=== PATIENT | male | born 1985 | race African-American/Black ===

== ENCOUNTER 2017-04-19 15:22 | Emergency (ER) | payer MEDICAID ==
[~2017-04-19] VITALS: Ht 193 cm; Wt 92.1 kg
[2017-04-19 15:51] VITALS: BP 149/95
--- NOTE | 2017-04-19 18:33 | NUR ---
PT TO BED 8 AT THIS TIME.
--- NOTE | 2017-04-19 18:53 | NUR ---
31M BIB SELF C/O 04/30 "SHARP" RIGHT ELBOW PAIN X 3 WKS; PT DENIES RECENT INJURY, MILD SWELLING, NO REDNESS NOTED, NOT HOT TO TOUCH; CMS INTACT; SKIN IS PINK/WARM/DRY; AOX4 WITH EVEN AND STEADY GAIT; RR ARE EVEN AND UNLABORED; VSS; PATIENT POSITIONED FOR COMFORT; HOB ELEVATED; BED DOWN. ER MD MADE AWARE OF PT STATUS. ALL NEEDS MET AT THIS TIME.
--- NOTE | 2017-04-19 19:09 | NUR ---
Pt report given to Torri ROSENBERG. Transfer of care at this time.
--- NOTE | 2017-04-19 19:15 | NUR ---
Assumed care of pt. No change in condition. pain 05/31.
--- NOTE | 2017-04-19 20:30 | NUR ---
Patient being evaluated by Dr. Dial at bedside.
[2017-04-19] MEDS ORDERED: MORPHINE SULFATE 4 MG/ML SYR IM ONE (20:35)
[2017-04-19 21:15] VITALS: BP 132/87
--- NOTE | 2017-04-19 21:15 | NUR ---
Patient discharged with v/s stable. Written and verbal after care instructions given and explained. Patient alert, oriented and verbalized understanding of instructions. Ambulatory with steady gait. All questions addressed prior to discharge. ID band removed. Patient advised to follow up with PMD. Patient educated on indication of medication including possible reaction and side effects. Opportunity to ask questions provided and answered.
== END 2017-04-19 21:15 | disposition home or self-care (01) ==
LOC: MED 15:22
DX: M25.521 Pain in right elbow (principal); G89.29 Other chronic pain; R03.0 Elevated blood-pressure reading, without diagnosis of hypertension
CPT/HCPCS: 73080; 96372; 99284; J2270

== ENCOUNTER 2017-05-29 09:19 | Emergency (ER) | payer SELFPAY ==
[~2017-05-29] VITALS: Ht 188 cm; Wt 89.8 kg
[2017-05-29 09:26] VITALS: BP 126/77
--- NOTE | 2017-05-29 09:30 | NUR ---
Patient ambulated to bed 06.
--- NOTE | 2017-05-29 09:32 | NUR ---
33/M BIB MOM C/O RIGHT ARM/ELBOW PAIN X1 WEEK. HX ELBOW SURGERY. DENIES N/V/D; SKIN IS PINK/WARM/DRY; AAOX4 WITH EVEN AND STEADY GAIT; LUNGS CLEAR BL; PT DENIES ANY FEVER, CP, SOB, OR COUGH AT THIS TIME; PATIENT STATES PAIN OF 10/10 AT THIS TIME; PATIENT POSITIONED FOR COMFORT; HOB ELEVATED; BEDRAILS UP X2; BED DOWN. ER MD MADE AWARE OF PT STATUS.
--- NOTE | 2017-05-29 10:00 | NUR ---
Dr. Bergeron evaluating patient at bedside.
[2017-05-29 10:32] VITALS: BP 119/72
--- NOTE | 2017-05-29 10:32 | NUR ---
Patient discharged with v/s stable. Written and verbal after care instructions given and explained. Patient alert, oriented and verbalized understanding of instructions. Ambulatory with steady gait. All questions addressed prior to discharge. ID band removed. Patient advised to follow up with PMD. Rx of EC- NAPROSYN & DOXYCYCLINE given. Patient educated on indication of medication including possible reaction and side effects. Opportunity to ask questions provided and answered.
== END 2017-05-29 10:32 | disposition home or self-care (01) ==
LOC: MED 09:19
DX: G89.4 Chronic pain syndrome (principal); M25.521 Pain in right elbow
CPT/HCPCS: 99283

== ENCOUNTER 2017-11-16 09:29 | Emergency (ER) | payer MEDICAID ==
[~2017-11-16] VITALS: Ht 188 cm; Wt 90.9 kg
[2017-11-16 09:33] VITALS: BP 145/98
--- NOTE | 2017-11-16 09:39 | NUR ---
Patient ambulated to chair B. RN evaluating patient.
--- NOTE | 2017-11-16 09:42 | NUR ---
32Y/M BIB SELF C/O BODYACHES ON RIGHT SIDE FROM A WEEK AGO. PATIENT STATES PAIN OF 10/10 AT THIS TIME; VSS; PATIENT POSITIONED FOR COMFORT; ER MD MADE AWARE OF PT STATUS.
--- NOTE | 2017-11-16 09:48 | NUR ---
Dr. Lee evaluating patient.
--- NOTE | 2017-11-16 10:02 | NUR ---
Patient discharged with v/s stable. Written and verbal after care instructions given and explained. Patient alert, oriented and verbalized understanding of instructions. Ambulatory with steady gait. All questions addressed prior to discharge. ID band removed. Patient advised to follow up with PMD. Rx of BACTRIUM DS AND TRAMADOL given. Patient educated on indication of medication including possible reaction and side effects. Opportunity to ask questions provided and answered.
[2017-11-16 10:04] VITALS: BP 145/98
== END 2017-11-16 10:02 | disposition home or self-care (01) ==
LOC: MED 09:29
DX: M25.521 Pain in right elbow (principal); R03.0 Elevated blood-pressure reading, without diagnosis of hypertension; F17.210 Nicotine dependence, cigarettes, uncomplicated; Z98.890 Other specified postprocedural states
CPT/HCPCS: 99283

== ENCOUNTER 2020-06-23 10:34 | Emergency (ER) | payer MEDICAID ==
[~2020-06-23] VITALS: Ht 193 cm; Wt 114.3 kg
[2020-06-23 10:40] VITALS: BP 159/90
--- NOTE | 2020-06-23 10:43 | NUR ---
PATIENT AMBULATED TO BED 5.
--- NOTE | 2020-06-23 10:47 | NUR ---
34 y/o male c/o large abscess to right gluteus X1week with 10/10 pin pressure constant worse with palpation, unable to sit or lay on area. Pt states draining "blood and pus" x 4 days, today drainage is yellow and green. Denies trauma to area, denies fever/chills, denies N/V/D. Denies PMH, RX. Allergies to bactrium.
[2020-06-23] MEDS ORDERED: MORPHINE SULFATE 4 MG/ML SYR IVP ONE (12:10)
[2020-06-23] MEDS ORDERED: ONDANSETRON 4 MG/2 ML VIAL IVP ONE (12:10)
[2020-06-23] MEDS ORDERED: NACL 0.9% 2,000 ML IV ONE (12:10)
--- NOTE | 2020-06-23 12:35 | NUR ---
XR at bedside.
[2020-06-23 12:54] LABS: BASOPHILS # (AUTO) 0.1 K/uL (0.00-0.22); BASOPHILS % (AUTO) 0.6 % (0.0-2.0); EOSINOPHILS % (AUTO) 0.4 % (0.0-4.0); HEMATOCRIT 47.1 % (36-52); LYMPHOCYTES # (AUTO) 1.5 K/uL (2.0-11.5); LYMPHOCYTES % (AUTO) 12.5 % (20.5-51.1); MEAN CORPUSCULAR HEMOGLOBIN 34 pg (27-31); MEAN CORPUSCULAR HGB CONC 34 g/dL (33-37); MEAN CORPUSCULAR VOLUME 99.3 fL (80-94); MONOCYTES # (AUTO) 0.9 K/uL (0.8-1.0); MONOCYTES % (AUTO) 7.2 % (1.7-9.3); NEUTROPHILS # (AUTO) 9.4 K/uL (1.8-7.7); NEUTROPHILS % (AUTO) 79.3 % (42.2-75.2); PLATELET COUNT (AUTO) 287 K/uL (140-450); RED BLOOD CELL COUNT(AUTO) 4.74 MIL/uL (4.20-6.10); RED CELL DISTRIBUTION WIDTH 12.5 % (11.6-13.7); WHITE BLOOD COUNT (AUTO) 11.9 K/uL (4.8-10.8)
[2020-06-23 13:06] LABS: ANION GAP 11.8 (8-16); CARBON DIOXIDE 24.2 mmol/L (21-32)
--- NOTE | 2020-06-23 13:07 | NUR ---
Pt taken to CT via rjose elias.
[2020-06-23 13:13] LABS: ALBUMIN 4.3 g/dL (3.4-5.0); TOTAL BILIRUBIN 0.5 mg/dL (0.0-1.0)
[2020-06-23 13:24] LABS: BARBITURATE, URINE NEGATIVE ng/ml (NEG <=200); BENZODIAZEPINE, URINE NEGATIVE ng/mL (NEG <=200); CANNABINOID, URINE POSITIVE ng/mL (NEG <=50); COCAINE, URINE NEGATIVE ng/mL (NEG <=300); OPIATE, URINE NEGATIVE ng/mL (NEG <=2000); PHENCYCLIDINE SCREEN,URINE NEGATIVE ng/mL (NEG <=25)
[2020-06-23 13:29] LABS: APPEARANCE,URINE CLEAR (CLEAR); BILIRUBIN,URINE NEGATIVE (NEGATIVE); BLOOD, URINE NEGATIVE (NEGATIVE); COLOR,URINE YELLOW (YELLOW); LEUKOCYTE ESTERASE ,URINE NEGATIVE (NEGATIVE); NITRITE, URINE NEGATIVE (NEGATIVE); UGLUCOSE NEGATIVE (NEGATIVE)
[2020-06-23] MEDS ORDERED: LIDOCAINE/EPI 1% 1:100000 20 ML VIAL INJ ONE (13:50)
[2020-06-23] MEDS ORDERED: KETOROLAC 30 MG/ML VIAL IVP ONE (13:50)
[2020-06-23] MEDS ORDERED: cefTRIAXone 1,000 MG VIAL ONE (13:58)
--- NOTE | 2020-06-23 14:22 | NUR ---
Dr. Kimble at bedside for I&D.
[2020-06-23 15:09] VITALS: BP 159/90
--- NOTE | 2020-06-23 15:10 | NUR ---
Patient discharged with v/s stable. Written and verbal after care instructions given and explained. Patient alert, oriented and verbalized understanding of instructions. Ambulatory with steady gait. All questions addressed prior to discharge. ID band removed. Patient advised to follow up with PMD. Rx of norco 5mg-325mg tab q6h PRN, naprosyn 500mg tab bid po, zyprexa 20mg tab daily po, keflex 500mg cap QID PO given. Patient educated on indication of medication including possible reaction and side effects. Opportunity to ask questions provided and answered.
[2020-06-23 15:37] LABS: PROTHROMBIN TIME 9.7 secs (10.8-13.4)
--- NOTE | 2020-06-28 06:07 | NUR ---
LATE ENTRY---- NS BOLUS DISCONTINUED AT 1510
--- NOTE | 2020-06-28 06:08 | NUR ---
LATE ENTRY---- ROCEPHIN 1G IVPB DISCONTINUED AT 1435
== END 2020-06-23 15:10 | disposition home or self-care (01) ==
LOC: MED 10:34
DX: L02.31 Cutaneous abscess of buttock (principal); F17.210 Nicotine dependence, cigarettes, uncomplicated; F12.90 Cannabis use, unspecified, uncomplicated; Z88.1 Allergy status to other antibiotic agents; Z88.2 Allergy status to sulfonamides; Z87.828 Personal history of other (healed) physical injury and trauma
CPT/HCPCS: 10060; 36415; 71045; 72193; 80053; 80305; 81003; 83605; 85025; 85610; 87040; 87086; 96361; 96365; 96375; 99285; J0696; J1885; J2001; J2270; J2405; J7030; Q9967

== ENCOUNTER 2020-10-07 13:21 | Emergency (ER) | payer MEDICAID ==
[~2020-10-07] VITALS: Ht 195.6 cm; Wt 110.7 kg
[2020-10-07] MEDS ORDERED: ACET-9527 PO (13:26)
[2020-10-07] MEDS ORDERED: NYST1CRE8 TP (13:26)
[2020-10-07 13:36] VITALS: BP 175/106
[2020-10-07] MEDS ORDERED: KETOROLAC 30 MG/ML VIAL IM ONE (14:00)
[2020-10-07] MEDS ORDERED: TRAM50TA3 PO (14:11)
[2020-10-07] MEDS ORDERED: QUET200T PO (14:11)
[2020-10-07] MEDS ORDERED: OLAN20TA PO (14:11)
[2020-10-07 14:22] VITALS: BP 175/106
== END 2020-10-07 14:22 | disposition home or self-care (01) ==
LOC: MED 13:21
DX: M25.521 Pain in right elbow (principal); F17.210 Nicotine dependence, cigarettes, uncomplicated; R03.0 Elevated blood-pressure reading, without diagnosis of hypertension; Z71.6 Tobacco abuse counseling; Z76.0 Encounter for issue of repeat prescription
CPT/HCPCS: 96372; 99283; J1885

== ENCOUNTER 2020-11-19 20:30 | Emergency (ER) | payer MEDICAID ==
[~2020-11-19] VITALS: Ht 193 cm; Wt 108.9 kg
[~2020-11-19 20:30] MED LIST: OLAN20TA PO; QUET200T PO; TRAM50TA3 PO
[2020-11-19 20:33] VITALS: BP 144/100
--- NOTE | 2020-11-19 20:33 | NUR ---
TO BED AMBULATORY
[2020-11-19] MEDS ORDERED: KETOROLAC 60 MG/2 ML VIAL IM ONE (20:45)
--- NOTE | 2020-11-19 21:42 | NUR ---
Dr. Chavez examining patient.
[2020-11-19] MEDS ORDERED: PRED20TA5 PO (21:56)
[2020-11-19] MEDS ORDERED: ACET-8386 PO (21:56)
[2020-11-19] MEDS ORDERED: OLAN20TA1 PO (21:56)
[2020-11-19] MEDS ORDERED: IBUP-2213 PO (21:56)
--- NOTE | 2020-11-19 22:05 | NUR ---
Patient discharged with v/s stable. Written and verbal after care instructions given and explained. Patient alert, oriented and verbalized understanding of instructions. Ambulatory with steady gait. All questions addressed prior to discharge. ID band removed. Patient advised to follow up with PMD. Rx of VICODIN, IBUPROFEN, ZYPREXA, DELTASONE given. Patient educated on indication of medication including possible reaction and side effects. Opportunity to ask questions provided and answered.
[2020-11-21] MEDS ORDERED: PRED20TA5 PO (10:48)
[2020-11-21] MEDS ORDERED: OLAN20TA1 PO (10:48)
[2020-11-21] MEDS ORDERED: IBUP-2213 PO (10:48)
== END 2020-11-19 22:05 | disposition home or self-care (01) ==
LOC: MED 20:30
DX: R05 Cough (principal); R07.9 Chest pain, unspecified; M25.521 Pain in right elbow; F17.210 Nicotine dependence, cigarettes, uncomplicated; Z88.2 Allergy status to sulfonamides; Z79.899 Other long term (current) drug therapy
CPT/HCPCS: 71045; 96372; 99283; J1885